=== PATIENT | female | born 1985 | race Caucasian/White ===

== ENCOUNTER 2022-12-16 07:12 | Emergency (ER) | payer OTHER ==
[2022-12-16 08:56] LABS: MUDS CUTOFF CONCENTRATIONS CUTOFF CONC BELOW:
[2022-12-16 08:58] LABS: BILIRUBIN,URINE NEGATIVE (NEGATIVE); GLUCOSE, URINE (UA) NEGATIVE (NEGATIVE); KETONES,URINE (UA) NEGATIVE (NEGATIVE); LEUKOCYTE ESTERASE, URINE NEGATIVE (NEGATIVE); NITRITE,URINE NEGATIVE (NEGATIVE); OCCULT BLOOD,URINE TRACE-INTA (NEGATIVE); PH,URINE 6.5 PH (5.0-7.5); PROTEIN,URINE NEGATIVE (NEGATIVE); UROBILINOGEN,URINE 0.2 (NORMAL) E.U./dL (NORMAL)
[2022-12-16 09:05] LABS: CLARITY,URINE CLEAR (CLEAR)
[2022-12-16 09:05] LABS: BASOPHILS # (AUTO) 0.1 10^3/uL (0.0-0.1); BASOPHILS % (AUTO) 1.1 %; EOSINOPHILS # (AUTO) 0.1 10^3/uL (0.0-0.7); EOSINOPHILS % (AUTO) 1.1 %; HCT - HEMATOCRIT 39.8 % (37.0-47.0); HGB - HEMOGLOBIN 13.7 g/dL (12.0-16.0); LYMPHOCYTES # (AUTO) 1.3 10^3/uL (1.5-3.5); LYMPHOCYTES % (AUTO) 20.9 %; MEAN CORPUSCULAR HEMOGLOBIN 30.7 pg (27.0-31.0); MEAN CORPUSCULAR HGB CONC 34.4 g/dL (32.0-36.0); MEAN CORPUSCULAR VOLUME 89.2 fL (81.0-99.0); MEAN PLATELET VOLUME 8.7 fL (7.9-10.8); MONOCYTES # (AUTO) 0.5 10^3/uL (0.0-1.0); MONOCYTES % (AUTO) 7.5 %; NEUTROPHILS # (AUTO) 4.3 10^3/uL (1.5-6.6); NEUTROPHILS % (AUTO) 69.1 %; PLT - PLATELET COUNT 303 10^3/uL (130-450); RED BLOOD COUNT 4.46 10^6/uL (4.20-5.40); RED CELL DISTRIBUTION WIDTH 12.6 % (12.0-15.0); WHITE BLOOD COUNT 6.2 x10^3/uL (4.8-10.8)
[2022-12-16 09:10] LABS: AMPHETAMINE SCREEN,URINE NEGATIVE (NEGATIVE); BARBITURATE SCREEN,UR NEGATIVE (NEGATIVE); BENZODIAZEPINES SCREEN, URINE NEGATIVE (NEGATIVE); COCAINE SCREEN URINE NEGATIVE (NEGATIVE); METHADONE SCREEN, URINE NEGATIVE (NEGATIVE); METHAMPHETAMINES SCREEN, URINE NEGATIVE (NEGATIVE); OPIATE SCREEN, URINE NEGATIVE (NEGATIVE); OXYCODONE SCREEN, URINE NEGATIVE (NEGATIVE); PROPOXYPHENE SCREEN, URINE NEGATIVE (NEGATIVE); THC CANNABINOID SCREEN, URINE POSITIVE (NEGATIVE); TRICYCLIC ANTIDEPRESSANT,URINE NEGATIVE (NEGATIVE)
[2022-12-16 09:21] LABS: ALBUMIN 4.8 g/dL (3.2-5.5); ALBUMIN/GLOBULIN RATIO 1.6 (1.0-2.2); ALKALINE PHOSPHATASE 64 IU/L (42-121); ALT ALANINE AMINOTRANSFERASE 26 IU/L (10-60); AST ASPARTATE AMINOTRANSFERASE 24 IU/L (10-42); BILIRUBIN,TOTAL 0.5 mg/dL (0.2-1.0); BUN - BLOOD UREA NITROGEN 9 mg/dL (6-20); CARBON DIOXIDE - CO2 24 mmol/L (21-32); CHLORIDE 106 mmol/L (101-111); ETOH - ETHANOL < 10.0 mg/dL; GFR - MDRD 62 (>89); GLUCOSE 115 mg/dL (74-104); LIPASE 27 U/L (11-82); POTASSIUM 4.1 mmol/L (3.5-4.5); SODIUM 138 mmol/L (135-145); TOTAL PROTEIN 7.8 g/dL (6.4-8.9)
[2022-12-16 09:26] LABS: SALICYLATE < 1.5 mg/dL
[2022-12-16 09:27] LABS: ACETAMINOPHEN < 0.1 ug/mL
--- NOTE | 2022-12-16 11:27 | ED Physician Documentation ---
History of Present Illness - Stated complaint Stated Complaint: AGITATED,AMS - Chief complaint Chief Complaint: General - History obtained from History obtained from: Patient, Family - Additonal information Additional information: This is a 37-year-old female who has a history of depression and anxiety and a family history of bipolar disorder who presents with a friend of the family after she has had some erratic behavior the last 2 days. The patient is visiting from [place], and has been out here for several days with plan to go back next week. It sounds as if she has had a number of stressors at home recently and was visiting to see friends and family as well as take a break from things at home. She has recently had some of her mental health medications adjusted, she was started on Lamictal on December 07, was to take 25 mg daily for 2 weeks then 50 mg daily for 2 weeks then 100 mg daily. She is also on Wellbutrin 150 and sertraline 200 mg. It is unclear if the patient is actually taking these medications. According to family friend, the patient was stable mentally when she arrived there but has had some episodes of somewhat erratic behavior. It sounds like 2 nights ago she stayed up all night writing things down on a paper and then she was supposed to go out dancing with friends yesterday however it is unclear if she ever did that and family is not sure where she went or who she was with. She apparently at some point ate a marijuana edible that family was concerned may have been laced with something because since then she has had increasingly erratic behavior. The family woke up this morning and states that all the lights in the house were on, the patient had made numerous piles of items throughout the house and saying odd things. Family thought perhaps it was due to bipolar disorder as it runs in her family or possibly due to drug ingestion. The patient does not to their knowledge have any history of drug use other than occasional marijuana use. She is prescribed medications as above but it is unclear if she is taking them. She does admit to numerous stressors and does have a history of PTSD but no diagnosed bipolar to her knowledge. History is difficult to obtain as patient frequently grabs my arm and states that she was told "I needed to look you in the eye and focus on your nose ring and tell you the truth." She repeatedly states she "was told she needed to get the baby in the waiting room," and states that "I need to focus on the triangles but I don't have them." Review of Systems Unable to obtain: Confused PD PAST MEDICAL HISTORY - Past Medical History Past Medical History: Yes Psych: Depression, Anxiety, Bipolar disorder (possibly diagnosed), Post traumatic stress disorder - Present Medications Home Medications: Ambulatory Orders Medication Instructions Recorded Confirmed Sertraline HCl 100 mg PO DAILY 12/16/22 12/16/22 buPROPion HCL [Bupropion Xl] 150 mg PO DAILY 12/16/22 12/16/22 lamoTRIgine [Lamictal Xr] 25 mg PO DAILY 12/16/22 12/16/22 - Allergies Allergies/Adverse Reactions: Allergies Allergy/AdvReac Type Severity Reaction Status Date / Time No Known Drug Allergies Allergy Verified 12/16/22 07:36 PD ED PE NORMAL - Vitals Vital signs reviewed: Yes - General General: Alert and oriented X 3, No acute distress, Well developed/nourished - HEENT HEENT: Atraumatic, Moist mucous membranes - Cardiac Cardiac: RRR, No murmur - Respiratory Respiratory: No respiratory distress, Clear bilaterally - Abdomen Abdomen: Normal bowel sounds, Soft, Non tender, Non distended - Derm Derm: Normal color, Warm and dry, No rash - Extremities Extremities: No deformity, No tenderness to palpate, Normal ROM s pain, No edema, No calf tenderness / cord - Neuro Neuro: Alert and oriented X 3, language and literature division chair 2-12 intact, No motor deficit, No sensory deficit, Normal speech Eye Opening: Spontaneous Motor: Obeys Commands Verbal: Confused GCS Score: 14 - Psych Psych: Other (flight of ideas at times, confused) Results - Vitals Vitals: Vital Signs - 24 hr 12/16/22 07:37 Temperature 37.3 C Heart Rate 92 Respiratory 16 Rate Blood Pressure 129/92 H O2 Saturation 99 Oxygen O2 Source Room air - Labs Labs: Laboratory Tests 12/16/22 12/16/22 12/16/22 08:26 09:00 09:00 WBC 6.2 RBC 4.46 Hgb 13.7 Hct 39.8 MCV 89.2 MCH 30.7 MCHC 34.4 RDW 12.6 Plt Count 303 MPV 8.7 Neut # (Auto) 4.3 Lymph # (Auto) 1.3 L [place] # (Auto) 0.5 Eos # (Auto) 0.1 Baso # (Auto) 0.1 Absolute Nucleated RBC 0.00 Nucleated RBC % 0.0 Sodium 138 Potassium 4.1 Chloride 106 Carbon Dioxide 24 Anion Gap 8.0 BUN 9 Creatinine 1.0 Estimated GFR (MDRD) 62 L Glucose 115 H Calcium 10.0 Total Bilirubin 0.5 AST 24 ALT 26 Alkaline Phosphatase 64 Total Protein 7.8 Albumin 4.8 Globulin 3.0 Albumin/Globulin Ratio 1.6 Lipase 27 TSH 1.80 Urine Color YELLOW Urine Clarity CLEAR Urine pH 6.5 Ur Specific [place] 1.010 Urine Protein NEGATIVE Urine Glucose (UA) NEGATIVE Urine Ketones NEGATIVE Urine Occult Blood TRACE-INTA Urine Nitrite NEGATIVE Urine Bilirubin NEGATIVE Urine Urobilinogen 0.2 (NORMAL) Ur Leukocyte Esterase NEGATIVE Ur Microscopic Review NOT INDICATED Urine Culture Comments NOT INDICATED Salicylates < 1.5 Urine Opiates Screen NEGATIVE Ur Oxycodone Screen NEGATIVE Urine Methadone Screen NEGATIVE Ur Propoxyphene Screen NEGATIVE Acetaminophen < 0.1 Ur Barbiturates Screen NEGATIVE Ur Tricyclics Screen NEGATIVE Ur Phencyclidine Scrn NEGATIVE Ur Amphetamine Screen NEGATIVE U Methamphetamines Scrn NEGATIVE U Benzodiazepines Scrn NEGATIVE Urine Cocaine Screen NEGATIVE U Cannabinoids Screen POSITIVE H Ethyl Alcohol < 10.0 PD Medical Decision Making - ED course Complexity details: reviewed results, re-evaluated patient, considered differential, d/w patient, d/w family, d/w senior financial consultant ED course: 37-year-old female presents with erratic and somewhat manic behavior as described in HPI. This is a change from her norm and the family thought perhaps it was related to recent marijuana use however symptoms not consistent with acute cannabinoid psychosis and rather there is concern for bipolar disease with kerrie. I have asked the mental health provider to evaluate the patient and they has kindly seen the patient via telemetry psych and have recommended placement for this patient is they are concerned that she is not having an acute manic episode and would not be safe to stay at home. The family is not able to watch her. She is not suicidal but is exhibiting erratic behavior and would benefit from inpatient mental health treatment. They recommended that we start risperidone 1 mg twice a day and to detain the patient if she were to attempt to leave. They will pursue mental health placement for this patient and we will continue to monitor in the ER until that time. Departure - Departure Disposition: 65 Psych Hosp/Unit DC/Xfer Clinical Impression: Kerrie Condition: Stable Forms: PCP List
--- NOTE | 2022-12-16 13:54 | TELEPSYCH PHYS NOTE ---
[facility] Telepsych Consult Consult Date: 12/16/22 Name of Referring Provider:: Sarah Garcia Reason for Consult: Psychiatric Evaluation - Suicide Risk Sreening (ASQ Tool) In the past few weeks, have you wished you were ?: No In the past few weeks, have you felt that you or your family would be better off if you were ?: No In the past week, have you been having thoughts about killing yourself?: No Have you ever tried to kill yourself?: No - Assessment Language: Hebrew (n/a) [employer] Required: No Cultural, Yarsanism or Spiritual Preferences: None realized Notes: Per ED notes patient has been having erratic behaviors over the past few days. She tells the ED provider that she has to focus on triangles because she does not have any and she said she needed to get the baby in the lobby. She is from [place], staying with friends currently. This AM friends woke and found that she had put piles of things all over the house and all the lights were on. Two nights ago, she stayed up all night writing things on paper. There is a report that she took an edible yesterday. There is family history of bipolar. I spoke with her nurse, Trudy OCONNOR.She reports she is, "excitable" and "unpredictable" and she's trying to elope. Her father is now in the ED. Chief Complaint: Psychiatric Evaluation History of Present Illness: 37 year old female with chart history of depression, anxiety, and PTSD presents today for psychiatric evaluation. She is seen with her sister's father in-law. She's staying with him and his since 12-12-22. She states she is in the hospital because, "bright light..." and she looks up at the ceiling, "sorry I'm connecting all the dots." She states she is confused and thinking clearly. She hasn't been sleeping for a few nights, "sleepless in [place] is where we met, it's not real." Energy lately has been, "it's been high." She admits to making piles of things at the house the other night when I ask about it, "trying to get through a list, checklist on my wall, college..." She hasn't smoked THC since being in town, "on the third day he or she chyna from the ." She admits to taking an edible last night. She has a good appetite and is drinking/eating. She denies history of IP admissions, stating she was not 'aware' of any. Denies any psych ED visits. She denies history of suicide attempts that she is 'aware' of. "I'm trying to connect all the dots..." She denies SI/HI. Her mother has bipolar disorder, "when I talked to my therapist last I might have brought it up when I was talking to my Mom." I ask if this is why they started Lamictal, she states she is trying to retrace her steps. Dr. Chadd BRAGG prescribes her psychiatric medications. She starts tapping her hand, patting herself all over her body with her hands. She denies alcohol abuse. She states that she does not use THC at home because she has a new address and something about babies being born. She has children, they are in [place] and being watched by her ex's parents. She lives with her 2 children. Stressed about 'everything'. She has 3 jobs in [place]. I ask if she was sleeping prior to coming into [facility], "I don't remember, I had things to do." I ask if she had planned this trip in advance, "it was spur of the moment. It webs back to [facility] in [facility] on the [facility] I speak with Farhad, the gentleman who she is staying with. She came into [facility] on 12-12-22. The trip was planned a few weeks ago. When she arrived, he was out of town so he's not sure how she was behaving at that time. She was able to get a rental car after flying in and she drove to their home from [place]. He feels that when he got home she was behaving normally. On 12-14-22 she stayed up all night and she told them she wrote a book. 12-15-22 she said she was going to leave to go to dancing with some women she met at a store. She got home at 10:30 PM and she stayed up all night, "going around the house and property making piles of things." She told him that he went to buy some edibles yesterday. She reported to Farhad that she was not taking her medications. Suicide Ideation - Homicide Ideation - Self Harm: Denies Psychiatric History - Treatment History: Unclear Community Resources Accessed: ED Family Psych History/ History of suicide: Mother with bipolar disorder Nutritional Status: No nutritional concerns - Medication & Allergies Home Medications: Ambulatory Orders Medication Instructions Recorded Confirmed Sertraline HCl 100 mg PO DAILY 12/16/22 12/16/22 buPROPion HCL [Bupropion Xl] 150 mg PO DAILY 12/16/22 12/16/22 lamoTRIgine [Lamictal Xr] 25 mg PO DAILY 12/16/22 12/16/22 Allergies/Adverse Reactions: Allergies Allergy/AdvReac Type Severity Reaction Status Date / Time No Known Drug Allergies Allergy Verified 12/16/22 07:36 - Drug & Alcohol History Does patient have Drug/ETOH history or addictive behavior?: Yes Use: Uses substance without health or social issues: Cannabis Use Issues: Other Abuse: Recurrent use of substance despite neg consequences: NONE Abuse Issues: Other Dependence: Experiences withdrawal or developed tolerances: NONE, Other Dependence Issues: Other Tobacco Details: Other - Trauma Does the patient have a history of trauma, abuse, neglect or explotation?: Yes History of trauma, abuse, neglect, or exploitation (Notes): PTSD diagnosis in chart; unable to assess her for this, however - Personal Information Does the patient have a history or present tendencies for violence?: None History or present tendencies for violence (Notes): Unknown Services History: Unknown Does patient have any Legal Charges or Investigations?: No Legal Charges or Investigations (Notes): Unknown Environment & Living Situation - Social, Peer-Group (Note): At home Environment & Living Situation - Social, Peer-Group (Notes): Lives in [place] with her 2 children Marital Status - Family Circumstances: Single Stressors - Financial Concerns: Unknown Education: Unknown Occupation: States she has 3 jobs, it's not clear what she does Collateral - Interdisciplinary Input: See HPI - Medical History Psychiatric: reports: Depression, Anxiety, Post traumatic stress disorder MRSA History: No Past Medical History - Other: unknown - Family & Social History Family History: Mother: Alive and Well (bipolar disorder) Family History Comment/Other: n/a Living Situation: With family Social History Notes: lives with 2 children Childhood History: unknown - Mental Status Exam Appearance and Attire: disheveled; casually dressed Attitude and Behavior: Bizarre; no psychomotor agitation; pats self over body Speech: Normal rate, volume and quantity Affect and Mood: Mood is unknown; slightly elated Association and Thought Process: Disorganized and blocked Thought Content: Delusional; denies SI/HI Perception: Not clear if she's having AVH Sensorium, memory and orientation: Alert; oriented to self Intellectual - Cognitive functioning: Confused Insight and Judgement: Absent Emotional and Behavioral Functioning: No combative behaviors Ability to Self-Care: No concerns for inability to perform ADL's - Personal Goals Short-term Goals: none identified Long-term Goals: none identified - Risk/Protective Factors Risk Factors: Substance intoxication or withdrawal Protective Factors / Internal: N/A Protective Factors / External: Responsibility to children, Supportive social network of family or friends, Positive therapeutic relationships, Engaged in work or school - Plan Impression/Risk Assessment: 37 year old female presents today with what I suspect is winifred. She is gravely disabled and not able to care for herself. She's at risk for harming her self inadvertently. She is in need of inpatient psychiatric hospitalization. I spoke with ED provider, Sarah De La Torre and she's in agreement with recommendations. Lower on my differential list is cannabis induced delirium. Treatment - Therapy Recommendations: Inpatient psychiatric admission; do not allow to leave AMA; precautions in the ED per hospital protocols; she is an elopement risk Pharmacological Recommendations: Start risperidone 1 mg bid after it's confirmed that she is not - Time Spent & Provider Location Telepsych consultation conducted via videoconferencing: Yes List names and roles of persons who participated in consult: Marilu Pinto Telepsych Provider Location: Home Office In [place] Time Spent (Minutes): 60
[2022-12-16 16:23] LABS: HCG UR QUAL NEGATIVE
[2022-12-16] MEDS: risperiDONE 1 MG TABLET PO SCH (20:37)
[2022-12-17 06:58] VITALS: BP 139/86; O2SAT 96
[2022-12-17] MEDS ORDERED: ACETAMINOPHEN 325 MG TABLET PO STA (07:42)
[2022-12-17] MEDS: risperiDONE 1 MG TABLET PO SCH (08:05)
--- NOTE | 2022-12-17 10:22 | ED Physician Documentation ---
ED Addendum - Addendum Addendum: 12/17/22 10:21 The patient reportedly rested comfortably overnight without any problems. No behavioral disturbance. She had some breakfast. She is slated for transfer to psychiatric facility briefly later this morning. She is still willing and comfortable with the plan. Disposition: The patient is transferred stable and psychiatric facility Diagnoses: Acute manic behavior
== END 2022-12-17 09:55 ==
LOC: ED 07:12
DX: F30.9 Manic episode, unspecified (principal); Z20.822 Contact with and (suspected) exposure to COVID-19
CPT/HCPCS: 36415; 80053; 80306; 80307; 80320; 80329; 81003; 81025; 83690; 84443; 85025; 87635; 90834; 99284; 99285; A9270; Q3014; 81001; 87086